=== PATIENT | female | born 1985 | race Caucasian/White ===

== ENCOUNTER 2017-06-20 13:47 | Emergency (ER) | payer MEDICAID ==
[~2017-06-20] VITALS: Ht 152.4 cm; Wt 47.6 kg
[~2017-06-20 13:47] MED LIST: Ipratropium 0.02% Inh Soln 2.5ml UD HHN ONE; Solu-MEDROL 125mg Inj IVP ONE
[2017-06-20] MEDS ORDERED: Albuterol ud Inhalation ONE (13:48)
[2017-06-20] MEDS ORDERED: Ipratropium 0.02% Inh Soln 2.5ml UD ONE (13:48)
[2017-06-20] MEDS: Albuterol ud Inhalation HHN SCH ×2 (13:59→14:06)
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
[2017-06-20 14:09] LABS: BASOPHILS % (AUTO) 2.3 % (0.0-2.0); EOSINOPHILS % (AUTO) 3.5 % (0.0-3.0); MEAN CORPUSCULAR HEMOGLOBIN 29.5 PG (27.0-31.0); MEAN CORPUSCULAR HGB CONC 32.9 G/DL (32.0-36.0); MEAN CORPUSCULAR VOLUME 90 FL (80-99); MEAN PLATELET VOLUME 6.9 FL (6.5-10.1); MONOCYTES % (AUTO) 5.9 % (1.0-10.0); NEUTROPHILS % (AUTO) 44.3 % (45.0-75.0); PLATELET COUNT 341 K/UL (150-450); RED BLOOD COUNT 5.03 M/UL (4.20-5.40); RED CELL DISTRIBUTION WIDTH 11.2 % (11.6-14.8); WHITE BLOOD COUNT 8.3 K/UL (4.8-10.8)
[2017-06-20 14:23] LABS: ALANINE AMINOTRANSFERASE 15 U/L (3-33); ALBUMIN/GLOBULIN RATIO 1.2 (1.0-2.7); ANION GAP 12 (5-15); ASPARTATE AMINO TRANSFERASE 19 U/L (5-40); CALCIUM 9.1 mg/dL (8.6-10.2); CARBON DIOXIDE 26 mEQ/L (20-30); CHLORIDE 102 mEQ/L (98-107); CREATININE 0.8 mg/dL (0.5-0.9); GLOMERULAR FILTRATION RATE > 60 mL/min (>60); HEMOLYSIS 2; POTASSIUM 3.8 mEQ/L (3.4-4.9); SODIUM 140 mEQ/L (135-145); TOTAL PROTEIN 7.8 g/dL (6.6-8.7)
[2017-06-20 14:50] VITALS: BP 129/68
[2017-06-20] MEDS ORDERED: PREDNISONE20 MG ORAL (16:08)
[2017-06-20] MEDS ORDERED: ALBUTEROL SULF8.5 GM INH (16:08)
[2017-06-20 16:22] VITALS: BP 123/72
--- NOTE | 2017-06-21 10:11 | Diagnostic Imaging Report ---
Indication: Shortness of breath Technique: XRAY CHEST 1 V Comparison: None Findings: Cardiomediastinal silhouette is within normal limits. There is questionable density in the periphery of the right midlung. Left nipple piercing is present. There is no pneumothorax or pleural effusion. Osseous structures demonstrate no acute abnormality. Impression: Questionable density of the periphery of the right midlung could represent overlying soft tissue artifact but subtle infiltrate cannot be completely excluded. Consider repeat PA and lateral views of the chest.
== END 2017-06-20 16:27 | disposition left against medical advice (07) ==
LOC: EDBD 13:47 → EMR 14:20 → EDBEDREQSVC 15:04 → EDBEDREQ 15:53 → EMR 16:27
DX: J45.902 Unspecified asthma with status asthmaticus (principal); Z91.410 Personal history of adult physical and sexual abuse
CPT/HCPCS: 36415; 71010; 80053; 82550; 83605; 83735; 85025; 85610; 85730; 93005; 94640; 96374; 99284; J2930